=== PATIENT | male | born 1945 | race Caucasian/White ===

== ENCOUNTER 2019-05-18 11:11 | Emergency (ER) | payer MEDICARE, OTHER ==
[2019-05-18 13:18] LABS: ABS Basophils 0.1 10^3/ul (0-0.2); ABS Lymphocytes 0.7 10^3/ul (1.0-4.8); ABS Monocytes 0.7 10^3/ul (0-0.8); ABS Neutrophils 9.2 10^3/ul (1.5-7.7); Eosinophil % 0.2 %; Hematocrit 41 % (42-52); Hemoglobin 14.1 g/dL (14.0-18.0); Lymphocyte % 6.4 %; Mean Corpuscular HGB Conc 35 g/dL (31-36); Mean Corpuscular Hemoglobin 32 pg (27-31); Mean Corpuscular Volume 91 fL (80-94); Mean Platelet Volume 6.7 fL (7.4-10.4); Nucleated Red Blood Cells % 0.1; Platelet Count 226 10^3/uL (150-450); Red Blood Count 4.47 10^6 /uL (4.18-5.48); Red Cell Distribution Width 16 % (10-15); White Blood Count 10.7 10^3/uL (3.5-10.8)
--- NOTE | 2019-05-18 13:28 | ED ---
Skin Complaint - HPI Summary HPI Summary: This pt is a 73 Y/O M presenting to [facility] with his son and a CC of bursitis. The pt states that he has had the inflammation in his R elbow for the past 4 days and has progressively gotten worse since the onset. He states that the pain currently is a 1/10 in severity and gets worse with movement. The pt states that he has decreased ROM due to pain and the swelling of the joint. The pt states that the swelling is also red and warm. He denies any current fever, SOB, N/V, and headaches. He states that he has a PMHx of brain cancer, enlarged prostate, and current chemotherapy x5 days a week. - History of Current Complaint Chief Complaint: EDRashSkinAbscess Time Seen by Provider: 05/18/19 13:07 Stated Complaint: RT ELBOW INFECTION PER PT Hx Obtained From: Patient Onset/Duration: Started Days Ago - 4, Still Present, Worse Since - onset Timing: Constant Onset Severity: Mild Current Severity: Mild Pain Intensity: 1 Pain Scale Used: 0-10 Numeric Skin Location: Arm - R elbow Character: Swelling, Pain, Redness Aggravating Symptom(s): Other: - movement Alleviating Symptom(s): Nothing Associated Signs & Symptoms: Negative - fever, SOB, N/V, and headaches, Joint Swelling - Allergy/Home Medications Allergies/Adverse Reactions: Allergies Allergy/AdvReac Type Severity Reaction Status Date / Time ciprofloxacin [From Cipro] Allergy Severe severe Verified 05/18/19 13:09 facial flushing, "head going to explode" Home Medications: Home Medications Amoxicillin/Clavulanate TAB* [Augmentin TAB 875*] 875 mg PO BID 05/18/19 [ History Confirmed 05/18/19] Coenzyme Q10 (NF) [Th Co Q-10] 1 cap PO DAILY 05/18/19 [History Confirmed ] Dexamethasone TAB* [Decadron TAB*] 1.5 mg PO BID 05/18/19 [History Confirmed 03/31] Finasteride TAB* [Proscar TAB*] 5 mg PO DAILY 05/18/19 [History Confirmed ] Multivitamins/Minerals TAB* [Theragran/minerals TAB*] 1 tab PO DAILY 05/18/19 [ History Confirmed 05/18/19] Nystatin CREAM* [Nystatin Cream*] 1 applic TOPICAL BID 05/18/19 [History Confirmed 05/18/19] Omeprazole (Nf) [Prilosec (NF)] 40 mg PO DAILY 05/18/19 [History Confirmed 05/18] Ondansetron TAB* [Zofran 4 MG Tab*] 8 mg PO DAILY PRN 05/18/19 [History Confirmed 05/18/19] Rivaroxaban TAB(*) [Xarelto 20 mg] 20 mg PO DAILY 05/18/19 [History Confirmed ] Tadalafil [Cialis] 10 - 20 mg PO DAILY 05/18/19 [History Confirmed 05/18/19] Tamsulosin CAP* [Flomax CAP*] 0.4 mg PO DAILY 05/18/19 [History Confirmed ] Temozolomide [Temodar] 380 mg PO DAILY 05/18/19 [History Confirmed 05/18/19] Venlafaxine EXT RELEASE CAP* [Effexor Xr CAP*] 37.5 mg PO DAILY 05/18/19 [ History Confirmed 05/18/19] levETIRAcetam TAB* [Keppra TAB*] 500 mg PO BID 05/18/19 [History Confirmed 05/18] PMH/Surg Hx/FS Hx/Imm Hx Previously Healthy: No Endocrine/Hematology History: Denies: Hx Diabetes Cardiovascular History: Reports: Hx Hypertension - ON MEDS Denies: Hx Pacemaker/ICD Respiratory History: Denies: Hx Asthma History: Denies: Hx Dialysis, Hx Renal Disease Sensory History: Denies: Hx Hearing Aid Psychiatric History: Denies: Hx Panic Disorder - Cancer History Cancer Type, 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 - Surgical History Surgery Procedure, Year, and Place: TONSIECTOMY,VASECTOMY,HERNIA,LUMBAR SPINE, ROTATOR CUFF REPAIR, BRAIN SURGERY TO REMOVE GLIOBLASTOMA - Immunization History Immunizations Up to Date: Yes Infectious Disease History: No Infectious Disease History: Denies: Traveled Outside the [place] in Last 30 Days - Family History Known Family History: Negative: Cardiac Disease, Hypertension - Social History Occupation: Employed Part-time Lives: With Family Alcohol Use: Rare Alcohol Amount: 2-3 beers a month Hx Substance Use: No Hx Tobacco Use: Yes Smoking Status (MU): Former Smoker Amount Used/How Often: 31 years ago, 1 PPD Review of Systems Negative: Fever Negative: Shortness Of Breath Negative: Vomiting, Nausea Positive: Other - R elbow Skin: Other - R elbow swollen, erythema. Negative: Headache All Other Systems Reviewed And Are Negative: Yes Physical Exam - Summary Physical Exam Summary: Constitutional: Well-developed, Well-nourished, Alert. (-) Distressed Skin: erythema to R olecranon HENT: Normocephalic; Atraumatic. Electrode stickers on head . Eyes: Conjunctiva normal Neck: Musculoskeletal ROM normal neck. (-) JVD, (-) Stridor, (-) Nuchal rigidity Cardio: Rhythm regular, rate normal, Heart sounds normal; Intact distal pulses; Radial pulses are 2+ and symmetric. (-) Murmur Pulmonary/Chest wall: Effort normal. (-) Respiratory distress, (-) Wheezes, (-) Rales Abd: Soft, (-) tenderness, (-) Distension, (-) Guarding, (-) Rebound Musculoskeletal: (-) Edema, R elbow has erythema surrounding the olecranon with fluctuation of the olecranon bursa. Active ROM is limited to 90 degree, but full passive ROM. Able to supinate and pronate. Lymph: (-) Cervical adenopathy Neuro: Alert, Oriented x3 Psych: Mood and affect Normal Triage Information Reviewed: Yes Vital Signs On Initial Exam: Initial Vitals Temp Pulse Resp BP Pulse Ox 97.4 F 78 18 150/93 96 05/18/19 11:12 05/18/19 11:12 05/18/19 11:12 05/18/19 11:12 05/18/19 11:12 Vital Signs Reviewed: Yes Procedures - Incision and Drainage Right Elbow Site: R olecranon bursa Anesthesia: Local, Lidocaine - 1% without epi Instrument(s): Needle - 20 gauge Packing: Gauze, Other - DMITRIY wrap bandage. Diagnostics - Vital Signs Vital Signs Temp Pulse Resp BP Pulse Ox 05/18/19 11:12 97.4 F 78 18 150/93 96 - Laboratory Lab Results: Lab Results 05/18/19 Range/Units 13:09 WBC 10.7 (3.5-10.8) 10^3/uL RBC 4.47 (4.18-5.48) 10^6 /uL Hgb 14.1 (14.0-18.0) g/dL Hct 41 L (42-52) % MCV 91 (80-94) fL MCH 32 H (27-31) pg MCHC 35 (31-36) g/dL RDW 16 H (10-15) % Plt Count 226 (150-450) 10^3/uL MPV 6.7 L (7.4-10.4) fL Neut % (Auto) 86.2 % Lymph % (Auto) 6.4 % [place] % (Auto) 6.7 % Eos % (Auto) 0.2 % Baso % (Auto) 0.5 % Absolute Neuts (auto) 9.2 H (1.5-7.7) 10^3/ul Absolute Lymphs (auto) 0.7 L (1.0-4.8) 10^3/ul Absolute Monos (auto) 0.7 (0-0.8) 10^3/ul Absolute Eos (auto) 0.0 (0-0.6) 10^3/ul Absolute Basos (auto) 0.1 (0-0.2) 10^3/ul Absolute Nucleated RBC 0.0 10^3/ul Nucleated RBC % 0.1 Result Diagrams: 05/18/19 13:09 05/18/19 13:09 Lab Statement: Any lab studies that have been ordered have been reviewed, and results considered in the medical decision making process. Re-Evaluation - Re-Evaluation First Eval Re-Evaluation Time: 14:02 Change: Unchanged Comment: Pt was informed about the procedure and was told about the benefits and risks. Pt and his family are agreeable to the procedure. The procedure began at 1403. Course/Dx - Course Course Of Treatment: 73-year-old male history of glioblastoma presents with right elbow swelling. - Exam consistent with olecranon bursitis. Differential includes overuse, inflammatory, infectious. Patient risk for infectious causefor bursitis, will discuss with orthopedics and do I&D. Will place patient on clindamycin for MRSA coverage. Send a wound culture if able to obtain sample. Patient is well-appearing and does not appear septic, but given immunocompromised state and also touch base with oncology - Diagnoses Provider Diagnoses: Olecranon bursitis, Cellulitis - Physician Notifications Discussed Care Of Patient With: Chris Wong Time Discussed With Above Provider: 13:30 Instructed by Provider To: Other - Discussed the care of the patient and the plan of care with Dr. Wong, orthopedic, who recomended drainage of the bursa and then the use of ABX tx, low suspicion of septic join given ability to supinate and pronate. Also requested a follow up with him at his office later. Dr. Dominguez was consulted at 1447 and he is ok with a discharge after the pt is given ABX Tx. Discharge - Sign-Out/Discharge Documenting (check all that apply): Patient Departure - discharge Patient Received Moderate/Deep Sedation with Procedure: No - Discharge Plan Condition: Stable Disposition: HOME Prescriptions: Clindamycin Cap(NF) [Clindamycin Cap 300 mg Cap(NF)] 300 mg PO Q6H 10 Days #40 cap Patient Education Materials: Elbow Bursitis (ED) Referrals: Dinesh Reese MD [Primary Care Provider] - Chris Wong MD [Medical Doctor] - 1 Week Additional Instructions: You were seen in the emergency department for right elbow swelling. Your exam is consistent with septic bursitis. Please keep the area wrapped, you can use Motrin as needed for pain. Please take antibiotic (clindamycin) 4 times a day for 10 days. Please follow up with orthopedics next week, and call your oncologist. Please return for worsening pain, fever, inability to move the joint, or any concerns. - Billing Disposition and Condition Condition: STABLE Disposition: Home - Attestation Statements Document Initiated by Marcelo: Yes Documenting Scribe: Harrison Hardwick Provider For Whom Marcelo is Documenting (Include Credential): Brooke Amador MD Scribe Attestation: IHarrison, scribed for Brooke Amador MD on 05/18/19 at 1512. Scribe Documentation Reviewed: Yes Provider Attestation: The documentation as recorded by the Harrison wilder accurately reflects the service I personally performed and the decisions made by Brooke mcneill MD Status of Scribe Document: Viewed
[2019-05-18] MEDS ORDERED: Lidocaine 1% INJ* 10 MG/ML 30 ML SDV INJ ONE (13:39)
[2019-05-18 13:44] LABS: Albumin 3.8 g/dL (3.2-5.2); Albumin/Globulin Ratio 1.3 (1-3); BUN/Creatinine Ratio 24.2 (8-20); C Reactive Protein 46.92 mg/L (<8.01); Calcium 8.9 mg/dL (8.6-10.3); EGFR African American 142.8 (>60); Potassium 3.9 mmol/L (3.5-5.0); Total Bilirubin 0.9 mg/dL (0.2-1.0); Total Protein 6.8 g/dL (6.4-8.9)
[2019-05-18] MEDS ORDERED: oxyCODONE/Acetamin 5/325 MG* TAB PO ONE (15:08)
[2019-05-18] MEDS: Clindamycin CAP* 150 MG PO ONE ×2 (15:16→15:24)
[2019-05-18] MEDS ORDERED: Clindamycin CAP* 150 MG ONE (15:20)
[2019-05-18 15:27] VITALS: BP 137/83
== END 2019-05-18 15:26 | disposition home or self-care (01) ==
LOC: ED 11:11
DX: M70.21 Olecranon bursitis, right elbow (principal); L03.113 Cellulitis of right upper limb; Y93.9 Activity, unspecified; Y92.9 Unspecified place or not applicable; C71.9 Malignant neoplasm of brain, unspecified; N40.0 Benign prostatic hyperplasia without lower urinary tract symptoms; I10 Essential (primary) hypertension; Z88.1 Allergy status to other antibiotic agents; Z79.899 Other long term (current) drug therapy; Z79.01 Long term (current) use of anticoagulants; Z87.891 Personal history of nicotine dependence
CPT/HCPCS: 10060; 36415; 80053; 83605; 85025; 86140; 87040; 87070; 87077; 87186; 87205; 87640; 87641; 99283; A9270-GY

== ENCOUNTER 2020-05-04 14:51 | Inpatient (IN) ==
[2020-05-04 15:48] LABS: Hematocrit 42 % (42-52); Hemoglobin 14.3 g/dL (14.0-18.0); Mean Corpuscular HGB Conc 34 g/dL (31-36); Mean Corpuscular Hemoglobin 31 pg (27-31); Mean Corpuscular Volume 91 fL (80-94); Mean Platelet Volume 6.1 fL (7.4-10.4); Platelet Count 123 10^3/uL (150-450); Red Blood Count 4.61 10^6 /uL (4.18-5.48); Red Cell Distribution Width 16 % (10-15); White Blood Count 7.1 10^3/uL (3.5-10.8)
[2020-05-04 15:59] LABS: Activated Partial Thrombo Time 21.1 seconds (26.0-38.0); INR 0.93 (0.82-1.09)
[2020-05-04 16:08] LABS: Urine Appearance Clear; Urine Bilirubin Negative (Negative); Urine Blood 3+ (Negative); Urine Color Yellow; Urine Glucose Negative (Negative); Urine Ketones Negative (Negative); Urine Nitrite Negative (Negative); Urine Protein Negative (Negative); Urine Specific Gravity 1.009 (1.010-1.030); Urine Urobilinogen Negative (Negative)
[2020-05-04 16:14] LABS: Urine Bacteria Absent (Absent); Urine Red Blood Cell 3+(>10/hpf) (Absent); Urine White Blood Cell Trace(0-5/hpf) (Absent)
[2020-05-04 16:24] LABS: Albumin 3.2 g/dL (3.2-5.2); Albumin/Globulin Ratio 1.6 (1-3); Calcium 8.1 mg/dL (8.6-10.3); EGFR African American 158.9 (>60); EGFR Non-African American 131.3 (>60); Potassium 4.5 mmol/L (3.5-5.0); Total Bilirubin 1.5 mg/dL (0.2-1.0); Total Protein 5.2 g/dL (6.4-8.9)
[2020-05-04 16:31] LABS: ABS Lymphocytes 0.4 10^3/ul (1.0-4.8); ABS Monocytes 0.4 10^3/ul (0-0.8); Lymphocyte % 5.7 %; Nucleated Red Blood Cells % 0.2
[2020-05-04] MEDS ORDERED: Dexamethasone IV 4 MG/ML VIAL 1 ml VIAL IV SLOW PU ONE (16:49)
[2020-05-04] MEDS ORDERED: Ondansetron 4 mg VIAL 2 MG/ML 2 ml VIAL IV PRN (18:15)
[2020-05-04] MEDS ORDERED: Dexamethasone IV 4 MG/ML 5 ML VIAL (20 MG) IVPB ONE (18:24)
[2020-05-05] MEDS ORDERED: Dexamethasone IV 4 MG/ML VIAL 1 ml VIAL IV SLOW PU SCH (08:00)
[2020-05-05] MEDS ORDERED: CMCS: Venlafaxine 25 mg TAB (NF) PO SCH (09:00)
[2020-05-05 12:21] VITALS: BP 120/70
== END 2020-05-05 15:50 | disposition home or self-care (01) | DRG 54 ==
LOC: ED 14:51 → MED 18:12
PROVIDERS: ADMIT Internal Medicine Hematology & Oncology; ATTEND Internal Medicine Hematology & Oncology